=== PATIENT | male | born 1995 | race Hispanic/Latino ===

== ENCOUNTER 2021-01-22 17:36 | Emergency (ER) | payer SELFPAY ==
[~2021-01-22] VITALS: Ht 172.7 cm; Wt 117.9 kg
[2021-01-22] MEDS ORDERED: TETANUS/DIPHTHERIA TOXOID [ADULT] 0.5 ML VIAL IM ONE (19:00)
[2021-01-22] MEDS ORDERED: CEPHALEXIN 500 MG CAPSULE PO ONE (19:00)
[2021-01-22] MEDS ORDERED: CEPH500B PO (19:06)
[2021-01-22 19:29] VITALS: BP 144/82
== END 2021-01-22 19:33 | disposition home or self-care (01) ==
LOC: EDH 17:36
DX: S61.432A Puncture wound without foreign body of left hand, initial encounter (principal); X58.XXXA Exposure to other specified factors, initial encounter; Y93.89 Activity, other specified; Y92.89 Other specified places as the place of occurrence of the external cause; Y99.8 Other external cause status
CPT/HCPCS: 73130

== ENCOUNTER 2022-06-22 18:56 | Emergency (ER) | payer OTHER ==
[~2022-06-22] VITALS: Ht 172.7 cm; Wt 116.6 kg
[~2022-06-22 18:56] MED LIST: CEPH500B PO
[2022-06-22 19:25] VITALS: BP 139/75
[2022-06-22] MEDS ORDERED: IBUP-2070 PO (21:54)
== END 2022-06-22 22:26 | disposition home or self-care (01) ==
LOC: EDH 18:56
DX: S60.221A Contusion of right hand, initial encounter (principal); Z90.79 Acquired absence of other genital organ(s); X58.XXXA Exposure to other specified factors, initial encounter; Y93.89 Activity, other specified; Y92.89 Other specified places as the place of occurrence of the external cause; Y99.8 Other external cause status
CPT/HCPCS: 73130